=== PATIENT | male | born 1965 | race Caucasian/White ===

== ENCOUNTER → 2024-08-10 | Outpatient (CLI) | payer OTHER ==
[~2024-08-10] MED LIST: GADOTERATE MEGLUMINE 10 MMOL/20 ML VIAL IV ONE; PERCOCET 325 MG1 TA4 PO; PERCOCET 325 MG1 TA7 PO; SEPTDS PO; TORADOL10 MG PO; VICODIN ES 7501 TAB PO; ZOFRAN ODT4 MG SL
== END | disposition home or self-care (01) ==
LOC: MRI 08:58
PROVIDERS: ATTEND Nurse Practitioner Family
DX: M79.89 Other specified soft tissue disorders (principal); M25.461 Effusion, right knee; R60.0 Localized edema

== ENCOUNTER 2024-11-27 19:01 | Emergency (ER) | payer OTHER ==
[~2024-11-27] VITALS: Ht 182.8 cm; Wt 81.6 kg
[~2024-11-27 19:01] MED LIST changes: -GADOTERATE MEGLUMINE 10 MMOL/20 ML VIAL IV ONE
[2024-11-27 19:18] VITALS: BP 127/76
[2024-11-27] MEDS ORDERED: CLINDAMYCIN HCL 300 MG CAPSULE PO ONE ×2 (19:30)
[2024-11-27] MEDS ORDERED: CLEOCIN HCL300 MG PO (19:30)
[2024-11-27] MEDS ORDERED: Acetaminophen/Hydrocodone 5 MG/325 MG TABLET PO ONE (19:35)
== END 2024-11-27 19:51 | disposition home or self-care (01) ==
LOC: ED 19:01
DX: L02.414 Cutaneous abscess of left upper limb (principal); I10 Essential (primary) hypertension; Z87.442 Personal history of urinary calculi; Z91.040 Latex allergy status; Z98.890 Other specified postprocedural states